=== PATIENT | female | born 1990 | race Two or more races ===

== ENCOUNTER 2023-12-17 04:26 | Inpatient (IN) | payer OTHER ==
[~2023-12-17] VITALS: Ht 162.6 cm; Wt 82.6 kg
[2023-12-17] MEDS ORDERED: AMPICILLIN SODIUM 2,000 MG VIAL ONE (04:29)
[2023-12-17] MEDS ORDERED: AMPICILLIN SODIUM 2,000 MG VIAL IV ONE (04:45)
[2023-12-17] MEDS ORDERED: RINGERS SOLUTION,LACTATED 1,000 ML IV SCH (04:45)
[2023-12-17 05:05] LABS: HEMATOCRIT 35.4 % (36.0-45.00); HEMOGLOBIN 12.1 g/dL (12.0-15.00); MEAN CELL VOLUME 89.1 fL (80.00-100.00); MEAN CORPUSCULAR HEMOGLOBIN 30.4 pg (27.00-32.0); MEAN CORPUSCULAR HGB CONC 34.1 g/dl (32.0-36.0); PLATELET COUNT 227 K/uL (150-450); RED BLOOD COUNT 3.97 M/uL (4.00-6.00); RED CELL DISTRIBUTION WIDTH 13.4 % (11.5-14.5)
[2023-12-17] MEDS ORDERED: OXYTOCIN 20 UNITS/1000ML RL PIGGYBAG IV ONE (05:08)
[2023-12-17] MEDS ORDERED: ERYTHROMYCIN BASE 1 GM TUBE OP ONE (05:08)
[2023-12-17] MEDS ORDERED: CHLORHEXIDINE GLUCONATE 120 ML BOTTLE TOP ONE (05:08)
[2023-12-17] MEDS ORDERED: LIDOCAINE HCL 1% 10ML VIAL ONE (05:09)
[2023-12-17 05:33] LABS: ALBUMIN 2.7 gm/dL (3.4-5.0); BILIRUBIN TOTAL 0.34 mg/dL (0.3-1.2); CREATININE SERUM 0.55 mg/dL (0.55-1.02); GFR 128.92; GLOBULINA 3.7 G/DL (2.4-3.5); POTASSIUM 4.15 mEq/L (3.5-5.1); TOTAL PROTEIN 6.4 gm/dL (6.4-8.2)
[2023-12-17 05:35] LABS: INR < 0.93; PARTIAL THROMBOPLASTIN TIME 28.4 SECONDS (22.0-34.0); PROTHROMBIN TIME 9.4 SECONDS (9.0-11.5)
[2023-12-17] MEDS ORDERED: MORPHINE SULFATE 4 MG/ML VIAL IV ONE (06:15)
[2023-12-17] MEDS ORDERED: OXYTOCIN 1,000 ML IV SCH (07:00)
[2023-12-17] MEDS ORDERED: OxyCODONE HCL/APAP UD (PERCOCET) PO PRN (07:00)
[2023-12-17] MEDS ORDERED: CHLORHEXIDINE GLUCONATE 120 ML BOTTLE TP SCH (07:00)
[2023-12-17] MEDS ORDERED: ERYTHROMYCIN BASE 1 GM TUBE OP SCH (07:00)
[2023-12-17] MEDS ORDERED: LIDOCAINE HCL 1% 10ML VIAL IJ ONE (07:15)
[2023-12-17] MEDS ORDERED: AMPICILLIN SODIUM 1,000 MG VIAL IV SCH (08:00)
[2023-12-17 10:06] LABS: ABG PH 7.362 (7.35-7.45); ABG PO2 32.4 mmHg (80-100); BICARBONATE 23.3 mmol/l (23-25); SaO2 58.9 %; Tco2 24.6 mmol/l; o2 21 %
[2023-12-17] MEDS ORDERED: KETOROLAC TROMETHAMINE 10 MG TABLET PO SCH (12:00)
== END 2023-12-19 12:45 | disposition home or self-care (01) | DRG 807 ==
LOC: LDR 04:26 → OB/GYN 08:58
PROVIDERS: ADMIT Obstetrics & Gynecology Maternal & Fetal Medicine; ATTEND Obstetrics & Gynecology Maternal & Fetal Medicine
PROC: 10E0XZZ Delivery of Products of Conception, External Approach (ICD-10-PCS; principal; 2023-12-17)
PROC: 4A1HXCZ Monitoring of Products of Conception, Cardiac Rate, External Approach (ICD-10-PCS; 2023-12-17)
DX: O80 Encounter for full-term uncomplicated delivery (principal); Z37.0 Single live birth; Z3A.38 38 weeks gestation of pregnancy; Z20.822 Contact with and (suspected) exposure to COVID-19